=== PATIENT | male | born 1990 | race Two or more races ===

== ENCOUNTER 2025-04-17 23:05 | Emergency (ER) | payer SELFPAY ==
[2025-04-17 23:10] VITALS: BMI 25.8
--- NOTE | 2025-04-17 23:16 | EKG_ITS ---
[facility] Test Date: 2025-04-17 Pat Name: CRISTINA IBRAHIM Department: Room: - Gender: Male [employer]: : 1990 Requested By: ED Temporary Provider Order Number: [id number] Reading MD: ED Temporary Provider Measurements Intervals [place] Rate: 88 P: 67 [place]: 142 QRS: 56 QRSD: 99 T: 73 QT: 349 QTc: 423 Interpretive Statements SINUS RHYTHM No previous ECG available for comparison /store/S0/[id number]/ecg/[id number].pdf
[2025-04-17 23:29] VITALS: BP 131/86; PULSE 87; RESP 18; TEMP 37.4; O2SAT 97
--- NOTE | 2025-04-17 23:33 | PD.EDRME ---
Rapid Medical Screening Exam RME Arrival date/time: 04/17/25 23:05 Chief Complaint: Chest Pain Time Seen by Provider: 04/17/25 23:30 Vital signs: Vital Signs Temperature 99.4 F 04/17/25 23:29 Pulse Rate 87 04/17/25 23:29 Respiratory Rate 18 04/17/25 23:29 Blood Pressure 131/86 H 04/17/25 23:29 Pulse Oximetry (%) 97 04/17/25 23:29 Oxygen Delivery Method Room Air 04/17/25 23:29 E Narrative: epigastric pain, n/v started today
[2025-04-17] MEDS: MG HYD/AL HYD/SIME (Maalox Reg) SUSP 30 ML UDC PO (23:45)
[2025-04-17] MEDS: LIDOCAINE VISCOUS 2% 15 ML UDC PO (23:46)
[2025-04-17] MEDS: KETOROLAC INJ 60 MG/2 ML VIAL 30 MG IM (23:47)
[2025-04-17] MEDS: HYDROcodone/APAP 5/325 TABLET 1 TAB PO (23:47)
[2025-04-17] MEDS: ONDANSETRON ODT 4 MG TABRAP PO (23:47)
[2025-04-17 23:52] LABS: Basophils # (Auto) 0.0 Thou/mm3 (0.0-0.2); Basophils % (Auto) 0 % (0-2.5); Eosinophils # (Auto) 0.0 Thou/mm3 (0.0-0.5); Eosinophils % (Auto) 0 % (0-10); Hematocrit 48.3 % (41.0-53.0); Hemoglobin 16.7 g/dL (13.5-16.0); Immature Granulocytes Auto 0.05 Thou/mm3 (0.00-0.00); Lymphocytes # (Auto) 1.1 Thou/mm3 (1.0-4.8); Lymphocytes % (Auto) 9 % (10-50); Mean Corpuscular HGB Conc 34.6 g/dl (31.0-37.0); Mean Corpuscular Hemoglobin 31.0 pg (25.0-35.0); Mean Corpuscular Volume 90 fL (80-100); Monocytes # (Auto) 0.9 Thou/mm3 (0.0-0.8); Monocytes % (Auto) 8 % (0-12); Neutrophils # (Auto) 10.0 Thou/mm3 (1.8-7.7); Neutrophils % (Auto) 82 % (37-80); Nucleated Red Blood Cell # 0.00 Thou/mm3 (0.00-0.00); Nucleated Red Blood Cell % 0 /100 WBC (0); Platelet Count 254 Thou/mm3 (140-440); RDW Standard Deviation 39.6 fL (35.1-43.9); Red Blood Count 5.38 Miln/mm3 (4.50-5.90); White Blood Count 12.1 Thou/mm3 (3.8-10.6)
[2025-04-18 00:19] LABS: Alanine Aminotransferase 48 U/L (10-49); Albumin, Serum 5.0 gm/dL (3.5-5.0); Albumin/Globulin Ratio 1.9 (1.2-2.2); Alkaline Phosphatase 134 U/L (46-116); Anion Gap 10 (7-16); Aspartate Amino Transferase 33 U/L (0-34); BUN/Creatinine Ratio 11 Ratio (12-20); Bilirubin,Total 0.6 mg/dL (0.3-1.2); Blood Urea Nitrogen 12 mg/dL (9-23); Calcium 10.1 mg/dL (8.3-10.6); Calcium (Corrected) 10.1 mg/dL (8.5-10.1); Carbon Dioxide 25.8 mMol/L (20.0-31.0); Chloride 104 mMol/L (98-107); Creatinine (Component) 1.1 mg/dL (0.6-1.3); Estimated Creatinine Clearance 84.6 mL/min (>60); Globulin 2.6 gm/dL (2.3-3.5); Glucose 128 mg/dL (74-106); Lipase 24 U/L (12-53); Osmolality,Calculated 281 (275-295); Potassium 3.9 mMol/L (3.4-5.1); Sodium 140 mMol/L (136-145); Total Protein 7.6 gm/dL (5.7-8.2); Troponin I < 0.002 ng/mL (0.0-0.045); eGFR > 60 See Note
--- NOTE | 2025-04-18 01:46 | EDNOTE_ITS ---
ED Abdominal Pain RME/HPI General Chief Complaint: Chest Pain Stated complaint: ABD PAIN CHEST PAIN Time seen by provider: 04/17/25 23:30 Arrival date/time: 04/17/25 23:05 RME / HPI RME / HPI narrative: epigastric pain, n/v started today DR. LONG MAIN ED EVALUATION: 34 y/o male presents to ED c/o nausea, vomiting, and epigastric abdominal pain x 1 day. Denies history of DM and HTN. No other concerns or complaints expressed at this time. Related Data Previous Rx's ?Medication ?Instructions ?Recorded dicyclomine 20 mg tablet 20 mg PO QID PRN abdominal p ain 04/18/25 #20 tabs pantoprazole 40 mg tablet,delayed 40 mg PO QDAY #30 ta bs 04/18/25 release (Protonix) Allergies Allergy/AdvReac Type Severity Reaction Status Date / Time No Known Allergies Allergy Verified 04/17/25 23:15 Review of Systems Review of Systems Systems Reviewed: All systems reviewed, normal except as documented Past Medical History Social History SMOKING STATUS: Never smoker ED Exam Narrative Physical exam: Generally patient is alert in no obvious distress, heart regular rate and r hythm, lungs clear to auscultation, abdomen soft bowel sounds present nondistended mild epigastric abdominal tenderness without rebound. No right upper quadrant abdominal tenderness. Negative Carrillo sign. Skin is warm pale and dry. Neurologic exam no focal motor or sensory deficits. Nerves II through XII grossly intact Course Quality Measures none Orders Category Date Time Status EKG (ED ONLY) *Do not use* NOW Care 04/17/25 23:16 Completed EKG (ED Only) Stat Exams 04/17/25 23:16 Draft CBC Stat Lab 04/17/25 23:45 Completed CMP [Comprehensive Metabolic Panel] Stat Lab 04/17/25 23:45 Completed Lipase Stat Lab 04/17/25 23:45 Completed Troponin I Stat Lab 04/17/25 23:45 Completed HYDROcodone*/APAP 5/325 [[place] 5/325] Med 04/17/25 23:34 Discontinued 1 tab PO X1 ONE Ketorolac Inj [Toradol Inj] Med 04/17/25 23:34 Discontinued 30 mg IM X1 ONE Lidocaine 2% Viscous [Xylocaine 2% Viscous] Med 04/17/25 23:34 Discontinued 15 ml PO X1 ONE Ondansetron Odt [Zofran Odt] Med 04/17/25 23:34 Discontinued 4 mg PO X1 ONE mg Hyd/Al Hyd/Sonja Susp [Maalox Susp] Med 04/17/25 23:34 Discontinued 30 ml PO X1 ONE Vital Signs Vital signs: Vital Signs Temperature 99.4 F 04/17/25 23:29 Pulse Rate 87 04/17/25 23:29 Respiratory Rate 18 04/17/25 23:29 Blood Pressure 131/86 H 04/17/25 23:29 Pulse Oximetry (%) 97 04/17/25 23:29 Oxygen Delivery Method Room Air 04/17/25 23:29 Abdominal Pain MDM MDM Narrative [facility] Narrative:: Scribe Attestation: I, Jerri Cazares, am scribing for and in the presence of Dr. Long. Provider Notation: Although this document has been carefully reviewed, there may still be some phonetic and other typographical errors.? These errors are purely grammatical due to imperfections in the software program and should not be co nstrued in any way to? compromise the substance of the patient's medical care during this visit. LFTs are normal with the exception of a slightly elevated alkaline phosphatase level. There is no fever or leukocytosis. Patient feels improved at this time. Cardiac workup was unremarkable. I believe this patient have epigastric abdominal pain possibly secondary to gastritis versus gastroesophageal reflux disease. Patient will be discharged on Bentyl and Protonix to be taken as prescribed. Follow-up with his doctor. Avoid hot spicy greasy fatty foods. Return to ER as needed or if condition worsens. I interpreted all labs. Patient data External records reviewed:: [facility] previous records (No prior ED records available for review.) Clinical information provided by:: patient Social determinants that could affect healthcare access:: none Patient has the following chronic illnesses:: None reported How is presenting disease/condition affected by chronic disease/condition?: no chronic disease Evaluation data The following diagnostics were reviewed and interpreted by me:: lab results and EKG tracing(s) Lab and/or radiology exams considered but not ordered:: None Interpretation Summary: Refer to [facility] Medications / Prescriptions Medications or Prescriptions considered but not ordered:: None Medication administrations:: Medication Administration History Discontinued Medications Hydrocodone Bitart/Acetaminophen (Hydrocodone/Apap 5/325 Tablet) 1 tab PO X1 ONE Stop: 04/17/25 23:35 Last Admin: 04/17/25 23:47 Dose: 1 tab Documented By: OA Al Hydrox/Mg Hydrox/Simethicone (Mg Hyd/Al Hyd/Sonja (Maalox Reg) Susp 30 Ml Udc) 30 ml PO X1 ONE Stop: 04/17/25 23:35 Last Admin: 04/17/25 23:45 Dose: 30 ml Documented By: OA Ketorolac Tromethamine (Ketorolac Inj 60 Mg/2 Ml Vial) 30 mg IM X1 ONE Stop: 04/17/25 23:35 Last Admin: 04/17/25 23:47 Dose: 30 mg Documented By: OA Lidocaine HCl (Lidocaine Viscous 2% 15 Ml Udc) 15 ml PO X1 ONE Stop: 04/17/25 23:35 Last Admin: 04/17/25 23:46 Dose: 15 ml Documented By: OA Ondansetron HCl (Ondansetron Odt 4 Mg Tabrap) 4 mg PO X1 ONE; Protocol Stop: 04/17/25 23:35 Last Admin: 04/17/25 23:47 Dose: 4 mg Documented By: OA See above. Consultations Consultation(s) initiated? (list below): No Diagnosis Differential diagnosis abdominal pain: abdominal pain, acute appendicitis, calculus of kidney, constipation, diverticulitis, gastroenteritis and small bowel obstruction Most likely diagnosis given after review of the tests above:: None Admission Indicated Admission indicated?: indicated Admission Request Was there a request for admission?: No Disposition Plan Disposition Plan: Discharge Discharge Attestation Discharge Attestation: The patient and all family members were given an opportunity to ask questions and understood the discharge instructions. Discharge instructions specifically effects, indications for sooner follow up or return to the emergency department, and the expected course of current diagnosis. Patient condition: Stable Discharge Plan Plan Patient Disposition: HOME (Self Care) Prescriptions/Referrals Prescriptions/Med Rec: New pantoprazole [Protonix] 40 mg tablet,delayed release (DR/EC) 40 mg PO QDAY Qty: 30 0RF dicyclomine 20 mg tablet 20 mg PO QID PRN (Reason: abdominal pain) Qty: 20 0RF Problem List Clinical Impression: Abdominal pain Patient/Caregiver Discharge Instructions Education Materials: Abdominal Pain Additional Instructions: Take your medication as prescribed. Follow-up with your doctor. Avoid hot spicy greasy fatty foods. Return to ER as needed or if condition worsens. Print Language: Kazakh Stand Alone Forms: Emmy Award Info., Patient Portal Info Letter
[2025-04-18 02:20] VITALS: RESP 12
== END 2025-04-18 02:20 | disposition home or self-care (01) ==
LOC: SERX 04-18 02:37
PROVIDERS: Physician Assistant; Emergency Provider Emergency Medicine
DX: R10.13 Epigastric pain (principal); R74.8 Abnormal levels of other serum enzymes
CPT/HCPCS: 36415; 80053; 83690; 84484; 85025; 93005; 96372; 99283; J1885; J3490; Q0162; A9270